=== PATIENT | female | born 1950 | race Caucasian/White ===

== ENCOUNTER → 2019-06-04 | Outpatient (CLI) | payer MEDICARE, OTHER ==
[~2019-06-04] MED LIST: ANAS1TAB49 PO; XGEVA SC
== END | disposition home or self-care (01) ==
LOC: STAR 09:30
PROVIDERS: ATTEND Specialist
DX: Z01.810 Encounter for preprocedural cardiovascular examination (principal); N81.4 Uterovaginal prolapse, unspecified
CPT/HCPCS: 93005